=== PATIENT | male | born 1985 | race Caucasian/White ===

== ENCOUNTER 2023-07-02 14:34 | Outpatient (CLI) | payer OTHER, SELFPAY ==
--- NOTE | ~2023-07-02 | XR_ITS ---
EXAMINATION: XR abdomen/kub 1V DATE: 07/02/2023 14:53 INDICATION: Kidney stone. TECHNIQUE: A supine view of the abdomen on 2 radiographs was obtained. COMPARISON: None. FINDINGS: There are no dilated loops of bowel. There is a small volume of stool in the colon. There i s a 4 mm calcification in the area of proximal left ureter. There is a 2 mm calcification in left pel vis. IMPRESSION: 1. 4 mm calcification in the area of proximal left ureter which may be a stone. 2. 2 mm calcification in left pelvis which may be a phlebolith or less likely a distal ureteral stone . Reviewed, dictated and finalized at location E. IMPRESSION: 1. 4 mm calcification in the area of proximal left ureter which may be a stone. 2. 2 mm calcification in left pelvis which may be a phlebolith or less likely a distal ureteral stone.
== END 2023-07-02 14:35 | disposition home or self-care (01) ==
LOC: ANHIMG 14:41
PROVIDERS: PCP Urology; Visit Provider Urology
DX: N20.0 Calculus of kidney (principal)
CPT/HCPCS: 74018

== ENCOUNTER 2024-06-30 18:23 | Emergency (ER) | payer OTHER, SELFPAY ==
[2024-06-30 18:31] VITALS: BP 138/85; PULSE 96; RESP 16; TEMP 37.3; O2SAT 99
[2024-06-30 18:55] LABS: EDCOVIDSCREEN Positive (Negative); EDINFLUASCREEN Negative (Negative); EDINFLUBSCREEN Negative (Negative)
--- NOTE | 2024-06-30 19:48 | ED.URI ---
HPI - URI/Sore Throat General Chief Complaint: Upper Respiratory Infection Stated Complaint: Chills/Fever/Cough/Shortness of Breath Source: patient, RN notes reviewed and old records reviewed Mode of arrival: ambulatory Limitations: no limitations History of Present Illness HPI Narrative: 39 year old male who presents to [facility] care with complaints of developing chills and body aches yesterday evening. Patient reports that he noted fevers around 100F last night and has been taking some Tylenol and has taken allergy medication.. Patient states some cough and feelings of being short of breath with activity, SAO2 97% on room air with no tachypnea noted. Reports some stuffy nose and congestion, denies any headache pain. MD elicited complaint: fever, cough and other (shortness of breath and chills) Onset (ago): day(s) (1) Pain scale (0-10): 3 Able to tolerate fluids by mouth: Yes Treatments prior to arrival: acetaminophen and other (allergy medication) Related Data Home Medications Medication Instructions Recorded Confirmed hydrochlorothiazide 12.5 mg tablet mg 06/30/24 Allergies Allergy/AdvReac Type Severity Reaction Status Date / Time No Known Allergies Allergy Verified 06/30/24 18:32 Review of Systems Review of Systems: CONSTITUTIONAL: Reports malaise, chills, sweats, or fever. EYES: Denies visual changes, redness, or discharge. ENT: Reports rhinorrhea, congestion,no sinus pain,no otalgia and no sore throat. CARDIOVASCULAR: Denies chest pain, palpitations, or edema. RESPIRATORY: Reports cough.? Denies acute dyspnea. GASTROINTESTINAL: Denies abdominal pain, nausea, vomiting, diarrhea SKIN: Denies rash or itching. MUSCULOSKELETAL: Reports myalgia. NEUROLOGIC: Denies headache. All systems reviewed & are unremarkable except as noted in HPI and below PMFSH Past Medical History Medical History (Updated 07/02/24 @ 15:56 by Poppy Hines NP) Hypertension Social History Social History (Updated 07/02/24 @ 15:56 by Poppy Hines NP) Alcohol intake: current Alcohol use details: social Substance use type: does not use Living arrangements: with family Gender identity (if verbalized by the patient): Male Comments At time of signature, agree with nursing past medical, surgical, social and family history. There is no relevant family history pertinent to the presenting complaint Exam Narrative: GENERAL: Well-appearing, well-nourished, and in no acute distress. HEAD: Normocephalic EYES: PERRLA, conjunctivae clear ENT: Nares clear, turbinates edematous and erythematous, clear discharge. Mucous membranes moist. TM pearly perez with dull light reflex bilaterally; no tragal tenderness. Oropharynx erythematous without lesions. Tonsils not enlarged and without exudate, no drooling, no hoarseness, no trismus, uvula midline.post nasal drainage noted NECK: Supple. No lymphadenopathy CHEST: Clear to auscultation, breath sounds equal. No wheezing, rhonchi, rales, or stridor. No respiratory distress, speaks in full sentences.cough noted SAO2 99% on room air no tachypnea noted HEART: Regular rate and rhythm. No murmur heard. SKIN: Warm, dry, no rash. NEURO: Alert and oriented x3. PSYCH: Normal mood and affect Course Course Emergency Course: Patient is aware of diagnosis, understands and agrees to treatment plan.? Anticipatory guidance given.? Patient agrees to follow-up as directed and is aware of reasons to seek care at the emergency department. Portions of this record may have been created with voice recognition software Level of Care: Express Care Visit Vital Signs Vital signs: Vital Signs Temperature 37.3 C 06/30/24 18:31 Pulse Rate 96 06/30/24 18:31 Respiratory Rate 16 06/30/24 18:31 Blood Pressure 138/85 06/30/24 18:31 Pulse Oximetry 99 06/30/24 18:31 Oxygen Delivery Room Air 06/30/24 18:31 Temperature 37.3 C 06/30/24 18:31 Pulse R
== END 2024-06-30 20:07 | disposition home or self-care (01) ==
PROVIDERS: Emergency Provider Registered Nurse
DX: U07.1 COVID-19 (principal); I10 Essential (primary) hypertension
CPT/HCPCS: 87426; 87804; 99212; G0463